=== PATIENT | male | born 2000 | race Two or more races ===

== ENCOUNTER 2022-04-24 12:08 | Outpatient (REF) | payer BC, OTHER, SELFPAY ==
[2022-04-24 13:32] LABS: Influenza A PCR POSITIVE (Negative); Influenza B PCR NEGATIVE (Negative); Resp Syncy Virus RNA Qual PCR NEGATIVE (Negative); SARS COV2 PCR INHOUSE NEGATIVE (Negative)
== END 2022-04-24 12:09 | disposition home or self-care (01) ==
LOC: HO.LNP 12:08
PROVIDERS: Visit Provider Nurse Practitioner Family
DX: Z20.822 Contact with and (suspected) exposure to COVID-19 (principal); R09.89 Other specified symptoms and signs involving the circulatory and respiratory systems
CPT/HCPCS: 0241U

== ENCOUNTER 2022-12-03 09:02 | Outpatient (AMB) | payer BC, MEDICAID, SELFPAY ==
--- NOTE | 2022-12-03 09:04 | A.OFFPC_ITS ---
Vital Signs 12/03/22 09:05 Height 6 ft 1.03 in Weight 166 lb BMI 21.9 BP 118/70 Blood Pressure Location Lt brachial Position Sitting Pulse 83 Pulse Source Pulse Oximeter Pulse Oximetry (%) 98 Oxygen Delivery Method Room Air Intake Visit Reasons: PE Allergies Seasonal Allergies Allergy (Intermediate, Verified 12/03/22 09:05) Itchy Eyes Medication List - Last Reconciled 12/03/22 by Lalo Sánchez MD acetaminophen (Tylenol) 650 mg (2 x 325 mg) PO Q6H PRN cetirizine (Zyrtec) 10 mg PO DAILY PRN 90 days triamcinolone acetonide 0.5% 1 appl topical BID Tobacco use date assessed: 05/14/22 Dental Screening Dental Screen Date: 12/03/22 Did you have a dental visit in the last 12 months?: Yes Did you have a dental problem in the last 6 months where you did not have access to dental care?: No Was dental information given to patient?: Patient has dentist HPI PE HPI Details 21-year-old autistic male with a history of eczema and seasonal allergies coming in for physical. Patient was last seen in May 2022. nasal congestion PFSH Surgical History No pertinent past surgical history Family History (Updated 12/03/22 @ 09:32 by Lalo Sánchez MD) Mother Heart murmur Prediabetes Father Medical history unknown Paternal Uncle No problems noted. Maternal Aunt Breast cancer Maternal Grandfather Myocardial infarct Maternal Uncle Colon cancer Social History Housing: Apartment Patient Tobacco Use Status: Never used Tobacco e-Cigarette/Vaping Use: Never Used Second Hand Smoke Exposure: No service: No Cognitive needs: No Hearing needs: No Vision needs: Yes Questionnaire PHQ-9 Over the last 2 weeks, how often have you been bothered by any of the following problems? 1. Little interest or pleasure in doing things: not at all 2. Feeling down, depressed, or hopeless: not at all 3. Trouble falling or staying asleep, or sleeping too much: not at all 4. Feeling tired or having little energy: not at all 5. Poor appetite or overeating: not at all 6. Feeling bad about yourself - or that you are a failure or have let yourself or your family down: not at all 7. Trouble concentrating on things, such as reading the newspaper or watching television: not at all 8. Moving or speaking so slowly that other people could have noticed. Or the opposite - being so fidgety or restless that you have been moving around a lot more than usual: not at all 9. Thoughts that you would be better off or of hurting yourself in some way: not at all Total score: 0 Depression Screening Interpretation: Negative Source: Developed by Drs. Wily Awad, Jeimy Oden, Hakeem Pollard and colleagues, with an educational stephanie from [employer]. Thrive Questionnaire Date Thrive assessed: 05/14/22 AUDIT C Alcohol Use Questionnaire (AUDIT-C) 1. How often do you have a drink containing alcohol?: Never 3. How often do you have six or more drinks on one occasion?: Never Total Score: 0 Score Reviewed/Action Taken: No ISIDRO-7 AMB Questionnaire ISIDRO-7 Date ISIDRO - 7 assessed: 05/14/22 Source: Developed by Drs. Wily Awad, Jeimy Oden, Hakeem Pollard and colleagues, with an educational stephanie from [employer]. Review of Systems Const Denies poor appetite and Denies weakness Eyes Denies no additional complaints ENT Reports Normal hearing present, Denies dizziness, Denies nasal congestion, Denies tinnitus and Denies sore throat Card Denies chest pain, Denies syncope, Denies rapid heart rate and Denies dyspnea Resp Denies cough and Denies dyspnea GI Denies change in stool character, Reports constipation, Denies diarrhea, Denies nausea and Denies vomiting Denies dysuria and Denies urinary frequency Neuro Reports Normal hearing present, Denies confusion, Denies dizziness, Denies syncope and Denies weakness Psych Denies confusion Physical exam (Primary Care) Vital Signs: Last Vital Signs Pulse 83 12/03/22 09:05 BP 118/70 12/03/22 09:05 Pulse Ox 98 12/03/22 09:05 Oxygen Delivery Method Room Air 12/03/22 09:05 BMI result Body Mass Index 21.9 Tobacco/Smoking Status: Tobacco use Status Tobacco use date assessed 05/14/22 12/03/22 09:11 Patient Tobacco Use Status Never used Tobacco 12/03/22 09:11 e-Cigarette/Vaping Use Never Used 12/03/22 09:11 PHQ-9: PHQ-9 Score PHQ-9: Total score 0 12/03/22 09:11 Depression Screening Interpretation: Negative Thrive Assessment: Date of Thrive Assessment Date Thrive assessed 05/14/22 12/03/22 09:11 Const General: alert; No acute distress or confusion Orientation/consciousness: No confusion Eyes Conjunctivae: conjunctivae normal Resp Auscultation: clear to auscultation bilaterally Cardio Rate: regular rate Rhythm: regular rhythm GI Inspection: Yes normal to inspection Neuro General: No confusion Cranial nerves: Yes Normal hearing present Extrem General: Yes normal to inspection and No edema Assessment and Plan Assessment & Plan (1) Annual physical exam: Code(s): Z00.00 - Encounter for general adult medical examination without abnormal findings (2) Autism: Code(s): F84.0 - Autistic disorder Plan: Continue to keep active and eat healthy (3) Seasonal allergies: Code(s): J30.2 - Other seasonal allergic rhinitis Plan: Continue with allergy medication Orders: Referrals Allergy & Immunology Referral J30.2 - Other seasonal allergic rhinitis Medications: New fluticasone propionate 50 mcg/actuation (Flonase Allergy Relief) administer into each nostril 1 spray intranasal DAILY 16 grams 4RF J30.2 - Other seasonal allergic rhinitis Coding Level of Care Code Est Pt Prev Care 18-39y(10840) Diagnoses Annual physical exam Z00.00 Autism F84.0 Seasonal allergies J30.2 Additional Codes PHQ-9 - 08413 - PHQ-9 Billing: Y ([id number])
[2022-12-03 09:05] VITALS: BP 118/70; PULSE 83; O2SAT 98; BMI 21.9
== END 2022-12-03 09:48 | disposition home or self-care (01) ==
PROVIDERS: PCP Nurse Practitioner Family; Visit Provider Internal Medicine
DX: Z00.00 Encounter for general adult medical examination without abnormal findings (principal); F84.0 Autistic disorder; J30.2 Other seasonal allergic rhinitis
CPT/HCPCS: 99395

== ENCOUNTER 2022-12-07 07:45 | Outpatient (REF) | payer BC, MEDICAID, SELFPAY ==
[2022-12-07 07:59] LABS: MANUAL DIFF FLAG NO
[2022-12-07 08:21] LABS: Basophils Percent Auto 0.5 % (0-2); Eosinophils Absolute Auto 0.1 X10*3/uL (0.0-0.4); Hematocrit 45.3 % (42.0-52.0); Hemoglobin 14.6 g/dl (14.0-18.0); Imm Gran Abs Auto 0.01 X10*3/uL (0.00-0.03); Imm Gran Pct Auto 0.2 % (0.0-0.4); Lymphocytes Absolute Auto 3.6 X10*3/uL (1.2-4.9); Lymphocytes Percent Auto 59.7 % (20-40); Mean Corpuscular HGB Conc 32.2 g/dl (31.0-36.0); Mean Corpuscular Hemoglobin 29.1 pg (27.0-33.0); Mean Corpuscular Volume 90.2 fL (80.0-98.0); Mean Platelet Volume 9.4 fL (9.4-12.4); Monocytes Absolute Auto 0.5 X10*3/uL (0.1-1.2); Monocytes Percent Auto 8.3 % (2-11); Neutrophils Absolute Auto 1.8 x10*3/uL (2.0-8.3); Neutrophils Percent Auto 30.3 % (45-73); Platelet Count 187 X10*3/uL (160-400); Red Blood Count 5.02 X10*6/uL (4.60-5.80); Red Cell Distribution Width 11.8 % (11.0-16.0)
[2022-12-07 08:56] LABS: Alanine Aminotransferase 19 U/L (0-40); Albumin Level 4.1 g/dL (3.5-5.0); Alkaline Phosphatase 72 U/L (39-117); Anion Gap 15 (12-20); Aspartate Amino Transferase 16 U/L (5-37); Bilirubin Total 0.7 mg/dL (0.0-1.0); Blood Urea Nitrogen 8 mg/dL (9-16); Calcium 9.4 mg/dL (8.4-10.2); Carbon Dioxide 26 mmol/L (22-29); Chloride 105 mmol/L (96-108); Cholesterol 144 mg/dL; Estimated Glomerular Filt Rate > 60; Glucose Random 86 mg/dL (60-115); HDL Cholesterol 54 mg/dL; LDL Cholesterol Calculated 79 mg/dl; Sodium 142 mmol/L (135-145); Total Protein 7.2 g/dL (6.5-8.0); Triglycerides 56 mg/dL
[2022-12-07 09:13] LABS: TSH reflex Free T4 2.25 uIU/mL (0.32-4.0); Vitamin D 25-OH Total 17.8 ng/mL (>30)
[2022-12-07 09:21] LABS: Folate 7.4 ng/mL (> or = 4.0); Vitamin B12 234 pg/mL (200-900)
== END 2022-12-07 07:46 | disposition home or self-care (01) ==
LOC: HO.LAB 07:45
PROVIDERS: PCP Internal Medicine; Visit Provider Internal Medicine
DX: Z00.00 Encounter for general adult medical examination without abnormal findings (principal); E78.00 Pure hypercholesterolemia, unspecified; L30.9 Dermatitis, unspecified; E55.9 Vitamin D deficiency, unspecified
CPT/HCPCS: 36415; 80053; 80061; 82306; 82607; 82746; 84443; 85025

== ENCOUNTER 2023-12-18 08:36 | Outpatient (AMB) | payer MEDICAID, SELFPAY ==
[2023-12-18 08:42] VITALS: BP 106/62; PULSE 75; O2SAT 96; BMI 22.0
--- NOTE | 2023-12-18 08:42 | A.OFFPC_ITS ---
Vital Signs 12/18/23 08:42 Height 6 ft 1 in Weight 167 lb BMI 22.0 BP 106/62 Blood Pressure Location Lt brachial Position Sitting Pulse 75 Pulse Source Pulse Oximeter Pulse Oximetry (%) 96 Oxygen Delivery Method Room Air Intake Visit Reasons: pe Allergies Seasonal Allergies Allergy (Intermediate, Verified 12/18/23 08:42) Itchy Eyes Medication List - Last Reconciled 12/18/23 by Lalo Sánchez MD acetaminophen (Tylenol) 650 mg (2 x 325 mg) PO Q6H PRN cetirizine (Zyrtec) 10 mg PO DAILY PRN 90 days triamcinolone acetonide 0.5% 1 appl topical BID Tobacco use date assessed: 12/18/23 Dental Screening Dental Screen Date: 12/18/23 Did you have a dental visit in the last 12 months?: Yes Did you have a dental problem in the last 6 months where you did not have access to dental care?: No Was dental information given to patient?: Patient has dentist HPI pe HPI Details 22-year-old male with autism and seasona l allergies coming in for physical exam last seen in December 2022. ADult program [facility] Surgical History No pertinent past surgical history Family History (Updated 12/03/22 @ 09:32 by Lalo Sánchez MD) Mother Heart murmur Prediabetes Father Medical history unknown Paternal Uncle No problems noted. Maternal Aunt Breast cancer Maternal Grandfather Myocardial infarct Maternal Uncle Colon cancer Social History (Updated 12/18/23 @ 09:07 by Lalo Sánchez MD) Housing: Apartment Alcohol intake: never Patient Tobacco Use Status: Never used Tobacco Tobacco use type: Cigarette e-Cigarette/Vaping Use: Never Used Second Hand Smoke Exposure: No service: No Cognitive needs: No Hearing needs: No Vision needs: Yes Questionnaire PHQ-9 Over the last 2 weeks, how often have you been bothered by any of the following problems? 1. Little interest or pleasure in doing things: not at all 2. Feeling down, depressed, or hopeless: not at all 3. Trouble falling or staying asleep, or sleeping too much: not at all 4. Feeling tired or having little energy: not at all 5. Poor appetite or overeating: not at all 6. Feeling bad about yourself - or that you are a failure or have let yourself or your family down: not at all 7. Trouble concentrating on things, such as reading the newspaper or watching television: not at all 8. Moving or speaking so slowly that other people could have noticed. Or the opposite - being so fidgety or restless that you have been moving around a lot more than usual: not at all 9. Thoughts that you would be better off or of hurting yourself in some way: not at all Total score: 0 Depression Screening Interpretation: Negative Depression Screening Done: Yes Source: Developed by Drs. Wily Awad, Hakeem Allen and colleagues, with an educational stephanie from [employer]. Thrive Questionnaire Date Thrive assessed: 12/18/23 I am a: Patient What is your living situation today?: I have a steady place to live THRIVE Score: 0 AUDIT C Alcohol Use Questionnaire (AUDIT-C) 1. How often do you have a drink containing alcohol?: Never 3. How often do you have six or more drinks on one occasion?: Never Total Score: 0 Score Reviewed/Action Taken: No ISIDRO-7 AMB Questionnaire ISIDRO-7 Date ISIDRO - 7 assessed: 12/18/23 Feeling nervous, anxious, or on edge: 0 = Not at all Not being able to stop or control worryin = Not at all Worrying too much about different things: 0 = Not at all Trouble relaxin = Not at all Being so restless that it is hard to sit still: 0 = Not at all Becoming easily annoyed or irritable: 0 = Not at all Feeling afraid as if something awful might happen: 0 = Not at all Total ISIDRO-7 score (0-4 normal; 5-9 mild; 10-14 moderate; 15-21 severe): 0 Source: Developed by Drs. Wily Awad, Hakeem Allen and colleagues, with an educational stephanie from [employer]. Review of Systems Const Denies poor appetite and Denies weakness Eyes Denies no additional complaints ENT Reports Normal hearing present, Denies dizziness, Denies nasal congestion, Denies tinnitus and Denies sore throat Card Denies chest pain, Denies syncope, Denies rapid heart rate and Denies dyspnea Resp Denies cough and Denies dyspnea GI Denies change in stool character, Reports constipation, Denies diarrhea, Denies nausea and Denies vomiting Denies dysuria and Denies urinary frequency Neuro Reports Normal hearing present, Denies confusion, Denies dizziness, Denies syncope and Denies weakness Psych Denies confusion Physical exam (Primary Care) Vital Signs: Last Vital Signs Pulse 75 12/18/23 08:42 BP 106/62 12/18/23 08:42 Pulse Ox 96 12/18/23 08:42 Oxygen Delivery Method Room Air 12/18/23 08:42 BMI result Body Mass Index 22.0 Tobacco/Smoking Status: Tobacco use Status Tobacco use date assessed 12/18/23 12/18/23 08:47 Patient Tobacco Use Status Never used Tobacco 12/18/23 08:47 Tobacco use type Cigarette 12/18/23 08:47 e-Cigarette/Vaping Use Never Used 12/18/23 08:47 PHQ-9: PHQ-9 Score PHQ-9: Total score 0 12/18/23 08:47 Depression Screening Interpretation: Negative Thrive Assessment: Date of Thrive Assessment Date Thrive assessed 12/18/23 12/18/23 08:47 Const General: No confusion Orientation/consciousness: No confusion Neuro General: No confusion Cranial nerves: Yes Normal hearing present Extrem Other: whitish skin desquation interdigital area Assessment and Plan Assessment & Plan (1) Annual physical exam: Code(s): Z00.00 - Encounter for general adult medical examination without abnormal findings Plan: Patient is advised to eat healthy, keep well hydrated, keep active and have adequate sleep. (2) Seasonal allergies: Code(s): J30.2 - Other seasonal allergic rhinitis Plan: Continue with allergy medication (3) Autism: Code(s): F84.0 - Autistic disorder Plan: Supportive management (4) Vision changes: Code(s): H53.9 - Unspecified visual disturbance (5) Tinea pedis: Code(s): B35.3 - Tinea pedis Orders: Referrals Ophthalmology Referral H53.9 - Unspecified visual disturbance Medications: New miconazole nitrate 2% (Zeasorb AF) 1 appl topical BID 85 grams 1RF B35.3 - Tinea pedis clotrimazole 1% 1 appl topical BID 4 weeks 45 grams 1RF B35.3 - Tinea pedis Coding Level of Care Code Est Pt Prev Care 18-39y(96029) Diagnoses Annual physical exam Z00.00 Seasonal allergies J30.2 Autism F84.0 Vision changes H53.9 Tinea pedis B35.3 Additional Codes PHQ-9 - 79186 - PHQ-9 Billing: ([id number])
== END 2023-12-18 09:25 | disposition home or self-care (01) ==
PROVIDERS: PCP Nurse Practitioner Family; Visit Provider Internal Medicine
DX: Z00.00 Encounter for general adult medical examination without abnormal findings (principal); J30.2 Other seasonal allergic rhinitis; F84.0 Autistic disorder; H53.9 Unspecified visual disturbance; B35.3 Tinea pedis
CPT/HCPCS: 99395

== ENCOUNTER 2024-12-21 08:37 | Outpatient (AMB) | payer OTHER, SELFPAY ==
[2024-12-21 08:50] VITALS: BP 114/62; PULSE 74; O2SAT 98; BMI 22.0
--- NOTE | 2024-12-21 08:50 | MHC.PC.OV ---
Vital Signs 12/21/24 08:50 Height 6 ft 1 in Weight 167 lb BMI 22.0 BP 114/62 Blood Pressure Location Lt brachial Position Sitting Pulse 74 Pulse Source Pulse Oximeter Pulse Oximetry (%) 98 Oxygen Delivery Method Room Air Intake Visit Reasons: PE Allergies Seasonal Allergies Allergy (Intermediate, Verified 12/21/24 08:50) Itchy Eyes Medication List - Last Reconciled 12/21/24 by Lalo Sánchez MD acetaminophen (Tylenol) 650 mg (2 x 325 mg) PO Q6H PRN cetirizine (Zyrtec) 10 mg PO DAILY PRN 90 days clotrimazole 1% 1 appl topical BID 4 weeks miconazole nitrate 2% (Zeasorb AF) 1 appl topical BID triamcinolone acetonide 0.5% 1 appl topical BID Tobacco use date assessed: 12/21/24 Dental Screening Dental Screen Date: 12/21/24 Did you have a dental visit in the last 12 months?: Yes Did you have a dental problem in the last 6 months where you did not have access to dental care?: No Was dental information given to patient?: Patient has dentist HPI PE HPI Details comes in with headphones on and watching show [facility] Surgical History No pertinent past surgical history Family History (Updated 12/03/22 @ 09:32 by Lalo Sánchez MD) Mother Heart murmur Prediabetes Father Medical history unknown Paternal Uncle No problems noted. 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 1. Little interest or pleasure in doing things: not at all 2. Feeling down, depressed, or hopeless: not at all 3. Trouble falling or staying asleep, or sleeping too much: not at all 4. Feeling tired or having little energy: not at all 5. Poor appetite or overeating: not at all 6. Feeling bad about yourself - or that you are a failure or have let yourself or your family down: not at all 7. Trouble concentrating on things, such as reading the newspaper or watching television: not at all 8. Moving or speaking so slowly that other people could have noticed. Or the opposite - being so fidgety or restless that you have been moving around a lot more than usual: not at all 9. Thoughts that you would be better off or of hurting yourself in some way: not at all Total score: 0 Depression Screening Interpretation: Negative Depression Screening Done: Yes Source: Developed by Drs. Wily Awad, Jeimy Oden, Hakeem Pollard and colleagues, with an educational stephanie from [employer]. Thrive Questionnaire Date Thrive assessed: 12/21/24 I am a: Patient What is your living situation today?: I have a steady place to live Within the past 12 months, did the food you bought not last and you didn't have the money to get more?: Never true Within the past 12 months, did you worry whether your food would run out before you got money to buy more?: Never true Do you have trouble paying for medicines?: No Do you have trouble getting transportation to medical appointments?: No Do you have trouble paying your heating and electricity bill?: No Do you have trouble taking care of your child, family member or friend?: No Do you have trouble with day-to-day activities such as bathing, preparing meals, shopping, managing finances, etc.?: No Are you currently unemployed and looking for a job?: No Are you interested in more education?: No Currently or been in a relationship where the following occur: No concerns reported THRIVE Score: 0 AUDIT C Alcohol Use Questionnaire (AUDIT-C) 1. How often do you have a drink containing alcohol?: Never 3. How often do you have six or more drinks on one occasion?: Never Total Score: 0 Score Reviewed/Action Taken: No ISIDRO-7 AMB Questionnaire ISIDRO-7 Date ISIDRO - 7 assessed: 12/21/24 Feeling nervous, anxious, or on edge: 0 = Not at all Not being able to stop or control worryin = Not at all Worrying too much about different things: 0 = Not at all Trouble relaxin = Not at all Being so restless that it is hard to sit still: 0 = Not at all Becoming easily annoyed or irritable: 0 = Not at all Feeling afraid as if something awful might happen: 0 = Not at all Total ISIDRO-7 score (0-4 normal; 5-9 mild; 10-14 moderate; 15-21 severe): 0 Source: Developed by Drs. Wily Awad, Jeimy Oden, Hakeem Pollard and colleagues, with an educational stephanie from [employer]. Review of Systems Const Denies poor appetite and Denies weakness Eyes Denies no additional complaints ENT Reports Normal hearing present, Denies dizziness, Denies nasal congestion, Denies tinnitus and Denies sore throat Card Denies chest pain, Denies syncope, Denies rapid heart rate and Denies dyspnea Resp Denies cough and Denies dyspnea GI Denies change in stool character, Reports constipation, Denies diarrhea, Denies nausea and Denies vomiting Denies dysuria and Denies urinary frequency Neuro Reports Normal hearing present, Denies confusion, Denies dizziness, Denies syncope and Denies weakness Psych Denies confusion Physical exam (Primary Care) Vital Signs: Last Vital Signs Pulse 74 12/21/24 08:50 BP 114/62 12/21/24 08:50 Pulse Ox 98 12/21/24 08:50 Oxygen Delivery Method Room Air 12/21/24 08:50 BMI result Body Mass Index 22.0 Tobacco/Smoking Status: Tobacco use Status Tobacco use date assessed 12/21/24 12/21/24 08:55 Patient Tobacco Use Status Never used Tobacco 12/21/24 08:55 Tobacco use type Cigarette 12/21/24 08:55 e-Cigarette/Vaping Use Never Used 12/21/24 08:55 PHQ-9: PHQ-9 Score PHQ-9: Total score 0 12/21/24 08:55 Depression Screening Interpretation: Negative Thrive Assessment: Date of Thrive Assessment Date Thrive assessed 12/21/24 12/21/24 08:55 Currently or been in a relationship where the following occur: No concerns reported Const General: No confusion Orientation/consciousness: No confusion HENMT Head: Yes normocephalic Ears: external ears normal and TM's normal bilaterally Face and sinus: Yes normal facial exam Mouth: moist mucous membranes Throat: Yes tonsils normal Eyes Conjunctivae: conjunctivae normal Pupils: Equal, round and reactive pupils present and Pupil accommodation reflex normal Direct Ophthalmoscopy: normal light reflex Neck Neck: No lymphadenopathy Thyroid: Thyroid normal Chest Chest palpation & inspection: normal inspection of the chest Resp Effort & Inspection: normal respiratory effort and no audible wheezes Auscultation: clear to auscultation bilaterally, no crackles, no wheezes and lung sounds not diminished Cardio Rate: regular rate Rhythm: regular rhythm Peripheral pulses: radial pulses present and dorsalis pedis present GI Other: visual rectal exam negative Palpation (GI): no masses Auscultation: normal bowel sounds and normoactive bowel sounds Skin General skin exam: no rashes or lesions noted Rashes: no rashes Neuro General: No confusion Cranial nerves: Yes Equal, round and reactive pupils present and Yes Normal hearing present Cognition (Neuro): normal cognition Gait exam (Neuro): Normal gait present Motor exam (neuro): 5/5 motor strength present throughout Deep tendon reflexes (DTR's): Right brachioradialis reflex intensity grade: 2+, Left brachioradialis reflex intensity grade: 2+, Right patellar reflex intensity grade: 2+ and Left patellar reflex intensity grade: 2+ Extrem General: No edema Coding Level of Care Code Est Pt Prev Care 18-39y(15012) Diagnoses Annual physical exam Z00.00 Autism F84.0 Seasonal allergies J30.2 Assessment & Plan Assessment & Plan (1) Annual physical exam: Code(s): Z00.00 - Encounter for general adult medical examination without abnormal findings Category: Medical Plan: Patient is advised to eat healthy, keep well hydrated, keep active and have adequate sleep. (2) Autism: Code(s): F84.0 - Autistic disorder Category: Medical Plan: Supportive management (3) Seasonal allergies: Code(s): J30.2 - Other seasonal allergic rhinitis Category: Medical Plan: Continue with allergy medication Plan History of Present Illness The patient is a 24-year-old male presenting for a routine physical examination. The patient has a history of osteoporosis, which was noted during the visit. His last blood work in 2022 showed normal blood counts, electrolytes, renal function, blood sugar, liver function, and cholesterol levels. However, he was found to have low levels of vitamin B12 and vitamin D, with normal folic acid and thyroid function. The patient does not have any allergies to medications and takes Zyrtec for allergies and Tylenol as needed. There have been no new diagnoses or surgeries since the last visit. Family history includes an aunt with breast cancer, an uncle with colon cancer, and a grandfather who had a heart attack. The patient denies any symptoms such as dizziness, nausea, vomiting, fevers, bowel movement issues, chest pain, or other complaints. Health Maintenance - Tetanus vaccination is up to date - Regular eye exams are conducted - Dental check-ups every three months due to braces Social History - Participates in an adult program for daily activities - Aspires to work but lacks understanding of money and numbers Review of Systems - General: Denies dizziness, nausea, vomiting, fevers - Gastrointestinal: Denies bowel movement issues, constipation, diarrhea - Cardiovascular: Denies chest pain Physical Exam General: Cooperative, healthy appearing, comfortable, no acute distress and well developed Orientation: Patient oriented x3 Limitations: No limitations Head: Normal to inspection Ears: Hearing grossly normal bilaterally, some earwax present but not bad Nose: Normal external nose present Face and sinus: Normal facial exam Eyes: Appearance normal, both eyes and all related structures Neck: Normal visual inspection and Yes full ROM Respiratory: Normal respiratory effort and able to speak in complete sentences. Clear to auscultation bilaterally Cardiovascular: Regular rate and rhythm. Normal S1 and S2 GI: Normal to inspection. Soft to palpation and nontender Skin: No rashes or lesions noted Neuro: Patient oriented x3 Extremities: Normal to inspection Results - Labs: Normal blood count, electrolytes, renal function, blood sugar, liver function, cholesterol; low vitamin B12 and D, normal folic acid and thyroid function Plan The patient will continue with supportive management for osteoporosis and maintain current medications for allergies. Regular follow-up is advised to monitor vitamin and D levels, and dietary adjustments may be necessary to address these deficiencies. Preventative care measures include maintaining up-to-date vaccinations, regular eye exams, and dental check-ups due to braces. The patient is encouraged to engage in healthy lifestyle practices, including a balanced diet and regular physical activity. Patient was informed and verbally consented to the use of an ambient scribe for clinic note documentation during this visit. Discussion Notes I discussed with the patient the importance of maintaining a healthy lifestyle, including a balanced diet and regular exercise, to support overall health and manage osteoporosis. We reviewed the need for regular monitoring of vitamin B12 and D levels and the continuation of current allergy medications. Preventative care, including vaccinations and regular dental and eye exams, was emphasized. Patient Instructions - Continue taking Zyrtec for allergies and Tylenol as needed. - Schedule regular follow-ups to monitor vitamin B12 and D levels. - Maintain a balanced diet rich in vegetables and low in fast foods. - Engage in regular physical activity to support bone health. - Ensure vaccinations are up to date and attend regular dental and eye exams.
--- OUTSIDE RECORDS SUMMARY | 2024-12-21 09:20 | XMS_ITS | Encounter Summary ---
Author Organization [facility] Address [address] [place] [id number] Phone Care Team Providers Care Hoe Worker Name Role Phone Pati Krishnan MD Primary Care Provider [phone] Encounter Details Date Type Department Care Team (Late st Contact Info) Description 02/04/2011 Documentation [facility] [place] Family Medicine [address] [place], [place] [id number] Family Medicine, Physician [address] [place], [place] [id number] Social History Tobacco Use Types Packs/Day Years Used Date Smoking Tobacco: Never Assessed Sex and Gender Information Value Date Recorded Sex Assigned at Not on file Legal Sex Male 5:12 PM EDT Gender Identity Not on file Sexual Orientation Not on file documented as of this encounter Plan of Treatment Not on file documented as of this encounter Visit Diagnoses Not on filedocumented in this encounter Care Teams Hoe Worker Relationship Specialty Start Date End Date Pati Krishnan MD [address] [facility] [place] [address] PCP - General 12/13/16 01/02/22 documented as of this encounter
== END 2024-12-21 09:22 | disposition home or self-care (01) ==
LOC: HO.HMCH 08:38
PROVIDERS: PCP Internal Medicine; Visit Provider Internal Medicine
DX: Z00.00 Encounter for general adult medical examination without abnormal findings (principal); F84.0 Autistic disorder; J30.2 Other seasonal allergic rhinitis

== ENCOUNTER → 2024-12-21 08:37 | Outpatient (BNVA) | payer OTHER, SELFPAY | PROVIDERS: PCP Internal Medicine; Visit Provider Internal Medicine | DX: Z00.00 Encounter for general adult medical examination without abnormal findings (principal); F84.0 Autistic disorder; J30.2 Other seasonal allergic rhinitis | CPT/HCPCS: 99395 ==